=== PATIENT | female | born 1995 | race Caucasian/White ===

== ENCOUNTER 2025-08-06 16:46 | Emergency (ER) | payer OTHER, SELFPAY ==
[2025-08-06 16:49] VITALS: BP 145/107
--- NOTE | 2025-08-06 19:16 | ED.GENMED ---
History of Present Illness
General
Chief Complaint: Musculo-Skeletal Complaint
Source: patient
Time Seen by Provider: 08/06/25 19:08
History of Present Illness
History of Present Illness:
30-year-old female with past medical history of previous substance abuse, sober for 10 years presenting to the emergency department for evaluation of a multitude of symptoms that been occurring over the last few weeks and months, initial complaint
was related to left shoulder pain and rib fractures that she states she is not sure how they occurred. Patient states she does not believe she had any trauma but does note that she had been lifting stuff at the gym and that this may have caused
some of the symptoms. Secondary concerns of a foul taste in her mouth, sores on her face, hair falling out, brittle teeth and what she believes to be is easily fractured bones. Patient newly got on Medicaid, was given a primary care provider but
has not followed up with them since getting her insurance activated. She has no known thyroid disorder history. She does smoke approximately 10 cigarettes/day. No fevers or infectious symptoms. No other concerns
Past History
Past History
ED Past Medical History: Other (Pt on Methadone, history of 'bad teeth.')
ED Past Surgical History: None
Social History
Tobacco: Smoker
Alcohol: None
Drug: Former user
Personal: Single
Living: with family
Review of Systems
Review of Systems
All Other Systems: ROS reviewed and negative except as documented in HPI and ROS
Phy Exam
Physical Exam
Physical Exam:
GENERAL: Alert , in no apparent distress
HEAD: Normocephalic atraumatic, generalized acne vulgaris bilateral cheeks and forehead
EYE: conjunctiva clear
NECK: Supple
ENT: o/p clr, mmm. poor dentition
CARDIAC: Regular rate and rhythm
LUNGS: Clear breath sounds bilaterally, no acute respiratory distress, no wheezes/rales/rhonchi
NEUROLOGICAL: Alert and oriented
SKIN: Warm and dry, skin intact.
MUSCULOSKELETAL: well perfused.
PSYCH: Normal and appropriate interaction.
Scores
Heart Failure Risk
Heart Failure Risk Score: Not Applicable
Heart Score for Chest Pain Patients
STEMI patient?: Not applicable
Withdrawal Assessment of Alcohol
Withdrawal Assessment Completed?: Not applicable
Course
Orders/Labs/Results
Orders:
Orders
08/06/25 16:54
CR Ribs-right 3 Vw W/pa Chest* Urgent
Comment:
Reason For Exam: pain, dx rib fractures at urgent care
CR Shoulder, Trauma - Left Urgent
Comment:
Reason For Exam: pain, diagnosed rib fractures at an urgent care
Vital Signs
Initial and Last Documented VS:
Initial Vital Signs
Temp Pulse Resp BP Pulse Ox
98.3 F 106 20 145/107 96
08/06/25 16:49 08/06/25 16:49 08/06/25 16:49 08/06/25 16:49 08/06/25 16:49
Last Documented Vital Signs
Temp Pulse Resp BP Pulse Ox
98.3 F 106 20 145/107 96
08/06/25 16:49 08/06/25 16:49 08/06/25 16:49 08/06/25 16:49 08/06/25 16:49
MDM/Problems Addressed
Differential Diagnosis Includes:
rib fracture
humeral fracture
shoulder sprain
Thyroid disorder
Electrolyte imbalance
hypocalcemia
Adrenal insufficiency
MDM/Problems Addressed:
30-year-old female presenting to the ER with a multitude of symptoms, initial concern was related to musculoskeletal injury. Secondary concerns of multiple nonspecific complaints including foul taste in her mouth, brittle teeth, losing her hair,
acne breakouts and generally feeling unwell. X-rays were ordered from triage showing older appearing rib fracture on the right, no fracture or abnormality of the older. I did offer to perform lab work for the patient including thyroid studies,
urine and basic labs including CBC and CMP however patient declined stating that she would just do this as an outpatient. I did provide patient with a prescription for this but I did notify the patient that she would need to follow-up with her
family doctor to discuss the results of these labs. Patient expressed understanding. Aware of return precautions to the ER. Otherwise stable for discharge home.
*Radiology
Radiology exam reviewed: radiology read reviewed
*Pulse Oximetry
SaO2: 96
Oxygen Mode of Delivery: Room air
Patient hypoxic: no
*Critical Care Note
Total Time (30-74mins, 75-104mins- exclusive of procedures): Not Applicable
ED Attending Note
-
Portions of this chart may have been created with voice recognition software.� Occasional wrong word or��sound alike� substitutions may have occurred due to the inherent limitations of voice recognition software.
Discharge Plan
Departure
Patient Disposition: Home (Routine Discharge)
Date of Disposition: 08/06/25
Time of Disposition: 19:16
Patient with high blood pressure during this ER visit?: Yes
Discharge Problem:
Rib pain on right side
Instructions: Rib fracture or bruised rib - ED (DC)
Prescriptions:
No Action
PNV no.95-ferrous fumarate-FA [] 1 EACH tablet
1 ea PO DAILY
Methadone
165 mg PO DAILY
ibuprofen 600 MG tablet
600 mg PO Q4HPRN PRN (Reason: moderate pain/cramps) 0RF
Referrals:
UNKNOWN - PT DOES,NOT KNOW [Family Provider]
Discharge Date and Time
Print Language: NAURUAN
[2025-08-06 19:23] VITALS: BMI 20.3
[2025-08-06 19:26] VITALS: BP 134/93
== END 2025-08-06 19:35 | disposition home or self-care (01) ==
LOC: EMR 16:46
PROVIDERS: EMERGENCY PHYSICIAN Student in an Organized Health Care Education/Training Program
DX: R07.89 Other chest pain (principal); F17.210 Nicotine dependence, cigarettes, uncomplicated; Z91.199 Patient's noncompliance with other medical treatment and regimen due to unspecified reason
CPT/HCPCS: 99283; 71101; 73030